=== PATIENT | female | born 1970 | race Caucasian/White ===

== ENCOUNTER 2018-09-03 11:01 | Outpatient (CLI) | payer OTHER ==
--- NOTE | 2018-09-03 12:45 | ULT ---
PELVIC ULTRASOUND COMPLETE INCLUDING TRANSABDOMINAL, TRANSVAGINAL AND VASCULAR DUPLEX WITH COLOR AND SPECTRAL DOPPLER IMAGING: History: Pelvic pain. FINDINGS: The uterus measures 7.5 x 3.8 x 4.0 cm with a 0.6 cm endometrium. The right ovary measures 14.7 x 8.9 x 10.7 cm which is markedly enlarged, there is a slightly septated right ovarian cyst or cystic mass which measures 7.5 x 9.8 x 11.9 cm. The left ovary is not seen. There is a 1.4 x 1.5 x 1.7 cm fibroi d within the body of the uterus. There is some focal thickening of the endometrial region of the cerv ix measuring up to approximately 0.7 cm in thickness, nonspecific. IMPRESSION: Large right ovarian cyst/cystic mass. Follow up gynecological evaluation is suggested. Small uterine fibroid. Nonspecific focal thickening of the endometrium region of the cervix. No evidence for ovaria n torsion although color flow evaluation within the ovary is somewhat limited because of the very lar ge ovarian cyst which replaces most of the right ovary with very little adjacent normal right ovarian tissue. Follow up gynecological evaluation is suggested. POS: RRE
--- NOTE | 2018-09-03 14:59 | MMO ---
FILMS COMPARED: The present examination has been compared to prior imaging studies performed at [facility] on 11/28/2011, 12/10/2014, 04/13/2016 and 05/08/2017. MAMMOGRAM FINDINGS: There are scattered fibroglandular densities. There are no suspicious masses, calcifications or areas of architectural distortion. IMPRESSION: THERE IS NO MAMMOGRAPHIC EVIDENCE OF MALIGNANCY. A ROUTINE FOLLOW-UP MAMMOGRAM IN 1 YEAR IS RECOMMENDED. ACR BI-RADS Category 1 - Negative
== END 2018-09-03 11:02 | disposition home or self-care (01) ==
LOC: BICULT 11:01
PROVIDERS: ATTEND Internal Medicine
DX: Z12.31 Encounter for screening mammogram for malignant neoplasm of breast (principal); R10.2 Pelvic and perineal pain; D25.9 Leiomyoma of uterus, unspecified; R93.89 Abnormal findings on diagnostic imaging of other specified body structures; N83.201 Unspecified ovarian cyst, right side
CPT/HCPCS: 76856; 77063; 77067

== ENCOUNTER 2019-09-05 10:00 | Outpatient (CLI) | payer OTHER ==
--- NOTE | 2019-09-05 10:36 | MMO ---
Bilateral MAMMO Bilat Screen [facility]DI. CLINICAL HISTORY: Patient is 49 years old and is seen for screening. The patient has the following family history of breast cancer: maternal grandfather, at age 50, malignant (generic). The patient has no personal history of cancer. The patient has a history of right Ultrasound Guided Core Biopsy in 2010 - benign. VIEWS: The views performed were: bilateral craniocaudal with tomosynthesis; bilateral mediolateral oblique with tomosynthesis; and cleavage view with tomosynthesis. FILMS COMPARED: The present examination has been compared to prior imaging studies performed at [facility] on 12/10/2014, 04/13/2016, 05/08/2017 and 09/03/2018. This study has been interpreted with the assistance of computer-aided detection. MAMMOGRAM FINDINGS: There are scattered fibroglandular densities. There are stable benign appearing densities seen in both breasts. There are no suspicious masses, suspicious calcifications, or new areas of architectural distortion. IMPRESSION: THERE IS NO MAMMOGRAPHIC EVIDENCE OF MALIGNANCY. A ROUTINE FOLLOW-UP MAMMOGRAM IN 1 YEAR IS RECOMMENDED. ACR BI-RADS Category 2 - Benign finding MAMMOGRAPHY NOTE: 1. A negative mammogram report should not delay a biopsy if a dominant of clinically suspicious mass is present. 2. Approximately 10% to 15% of breast cancers are not detected by mammography. 3. Adenosis and dense breasts may obscure an underlying neoplasm. Reported by: BETZAIDA RODRIGUEZ MD Electonically Signed: [id number]
== END 2019-09-05 10:01 | disposition home or self-care (01) ==
LOC: BICMAMMO 10:00
PROVIDERS: ATTEND Internal Medicine
DX: Z12.31 Encounter for screening mammogram for malignant neoplasm of breast (principal); Z80.3 Family history of malignant neoplasm of breast; Z91.89 Other specified personal risk factors, not elsewhere classified
CPT/HCPCS: 77067

== ENCOUNTER 2020-09-06 10:20 | Outpatient (CLI) | payer OTHER | END 2020-09-06 10:21 | disposition home or self-care (01) | LOC: BICMAMMO 10:20 | PROVIDERS: ATTEND Internal Medicine | DX: Z12.31 Encounter for screening mammogram for malignant neoplasm of breast (principal); Z91.89 Other specified personal risk factors, not elsewhere classified | CPT/HCPCS: 77063; 77067 ==

== ENCOUNTER 2020-10-04 10:59 | Inpatient (IN) | payer OTHER ==
[2020-10-04 11:43] LABS: #Basophils 0.1 thou/uL (0.0-0.2); #Eosinphils 0.2 thou/uL (0.0-0.7); #Lymphocytes 3.7 thou/uL (1.20-3.40); #Monocytes 0.6 thou/uL (0.11-0.59); #Neutrophils 8.1 thou/uL (1.40-6.50); %Basophils 0.6 % (0.0-1.0); %Eosinophils 1.4 % (0.0-10.0); %Lymphocytes 29.1 % (21.0-51.0); %Monocytes 4.7 % (0.0-10.0); %Neutrophils 64.1 % (42.0-75.0); Hemoglobin 7.5 g/dL (12.0-16.0); Mean Corpuscular HGB CONC 33.9 g/dL (32.0-36.0); Mean Corpuscular Hemoglobin 29.2 pg (27.0-31.0); Mean Corpuscular Volume 86.1 fL (78.0-98.0); Mean Platelet Volume 8.4 fL (7.4-10.4); Platelet Count 269 thou/uL (130-400); Red Blood Cell (RBC) Count 2.58 mill/uL (4.20-5.40); White Blood Cell (WBC) Count 12.7 thou/uL (4.8-10.8)
[2020-10-04 11:50] LABS: Bilirubin Negative (Negative); Blood, Urine Negative (Negative); Clarity Clear (Clear); Glucose, Urine (Dipstick) Normal (Negative); Ketone, Urine Negative (Negative); Leukocyte Negative Leu/uL (Negative); Nitrite Negative (Negative); Protein, Urine (Dipstick) Negative (Neg-Trace); Specific Gravity, Urine 1.004 (1.002-1.036); Urobilinogen Normal mg/dL (Less than 2); pH, Urine 6.5 (5.0-9.0)
[2020-10-04 12:10] LABS: ALT (SGPT) 26 U/L (8-55); AST (SGOT) 18 U/L (5-34); Albumin 3.8 g/dL (3.5-5.0); Alkaline Phosphatase 69 U/L (40-110); Anion Gap 12 mmol/L (10-20); BUN (Urea Nitrogen) 18 mg/dL (9.8-20.1); Bilirubin, Total 0.2 mg/dL (0.2-1.2); Calc. Creatinine Clearance 0 mL/min (70-130); Calcium 8.6 mg/dL (7.8-10.44); Carbon Dioxide 24 mmol/L (22-29); Chloride 110 mmol/L (98-107); Globulin 2.6 g/dL (2.4-3.5); Glucose 122 mg/dL (70-105); Potassium 3.9 mmol/L (3.5-5.1); Protein, Total 6.4 g/dL (6.0-8.3); Sodium 142 mmol/L (136-145)
[2020-10-04 13:30] LABS: SARS-CoV-2 NAA Rapid Test Not Detected (NotDetected)
[2020-10-04] MEDS ORDERED: Pantoprazole 40 MG VIAL ONE (15:01)
[2020-10-04] MEDS ORDERED: Acetaminophen 325 MG TAB PO PRN (15:31)
[2020-10-04] MEDS ORDERED: Ondansetron PF 4 MG/2 ML Vial IVP PRN (15:31)
[2020-10-04] MEDS ORDERED: Pantoprazole 80 MG in Sodium Chloride 0.9% 100 ML IVPB SCH (15:45)
[2020-10-04 16:54] VITALS: BMI 40.1
[2020-10-04 18:01] LABS: Reticulocyte Count 2.9 % (0.5-1.5)
[2020-10-04 18:23] LABS: Iron 97 ug/dL (50-170); Iron Binding Capacity, Total 368 mcg/dL (265-497)
[2020-10-04] MEDS ORDERED: GoLYTELY 4,000 ml Bottle PO SCH (18:45)
[2020-10-04] MEDS ORDERED: traMADol HCl 50 MG TAB PO SCH (21:30)
[2020-10-05 06:05] LABS: #Eosinphils 0.2 thou/uL (0.0-0.7); #Lymphocytes 3.1 thou/uL (1.20-3.40); #Monocytes 0.4 thou/uL (0.11-0.59); #Neutrophils 4.7 thou/uL (1.40-6.50); %Basophils 0.2 % (0.0-1.0); %Eosinophils 2.2 % (0.0-10.0); %Lymphocytes 37.6 % (21.0-51.0); %Monocytes 4.5 % (0.0-10.0); %Neutrophils 55.6 % (42.0-75.0); Hemoglobin 8.1 g/dL (12.0-16.0); Mean Corpuscular HGB CONC 34.7 g/dL (32.0-36.0); Mean Corpuscular Volume 83.6 fL (78.0-98.0); Mean Platelet Volume 8.7 fL (7.4-10.4); Platelet Count 181 thou/uL (130-400); RBC Distribution Width 15.6 % (11.5-14.5); White Blood Cell (WBC) Count 8.4 thou/uL (4.8-10.8)
[2020-10-05 06:11] LABS: Prothrombin Time 12.9 sec (12.0-14.7)
[2020-10-05 06:30] LABS: ALT (SGPT) 22 U/L (8-55); AST (SGOT) 15 U/L (5-34); Albumin 3.4 g/dL (3.5-5.0); Alkaline Phosphatase 61 U/L (40-110); Anion Gap 11 mmol/L (10-20); BUN (Urea Nitrogen) 9 mg/dL (9.8-20.1); Bilirubin, Total 0.3 mg/dL (0.2-1.2); Calc. Creatinine Clearance 165 mL/min (70-130); Calcium 8.2 mg/dL (7.8-10.44); Carbon Dioxide 25 mmol/L (22-29); Chloride 110 mmol/L (98-107); Globulin 2.3 g/dL (2.4-3.5); Glucose 100 mg/dL (70-105); Potassium 3.8 mmol/L (3.5-5.1); Protein, Total 5.7 g/dL (6.0-8.3); Sodium 142 mmol/L (136-145)
[2020-10-05] MEDS ORDERED: PROPOFOL 200 MG/20 ML VIAL ONE (12:53)
[2020-10-05] MEDS ORDERED: Lidocaine 1% PF 5 ML VIAL ONE (12:53)
[2020-10-05] MEDS ORDERED: Pantoprazole 40 MG VIAL IVP SCH (14:00)
[2020-10-05] MEDS: traMADol HCl 50 MG TAB PO PRN ×2 (15:15→20:02)
[2020-10-05] MEDS: Pantoprazole 40 MG VIAL IVP SCH (20:03)
[2020-10-06 05:58] LABS: Platelet Count 204 thou/uL (130-400)
[2020-10-06 07:29] VITALS: BP 122/83; TEMP 98.3
[2020-10-06] MEDS: Pantoprazole 40 MG VIAL IVP SCH (08:08)
[2020-10-06] MEDS: traMADol HCl 50 MG TAB PO PRN (11:15)
== END 2020-10-06 12:42 | disposition home or self-care (01) | DRG 378 ==
LOC: ERS 10:59 → T4-A 15:31
PROVIDERS: ADMIT Internal Medicine; ATTEND Family Medicine
PROC: 30233N1 Transfusion of Nonautologous Red Blood Cells into Peripheral Vein, Percutaneous Approach (ICD-10-PCS; 2020-10-04)
PROC: 0DB78ZX Excision of Stomach, Pylorus, Via Natural or Artificial Opening Endoscopic, Diagnostic (ICD-10-PCS; principal; 2020-10-05)
DX: K25.4 Chronic or unspecified gastric ulcer with hemorrhage (principal); D62 Acute posthemorrhagic anemia; Z20.822 Contact with and (suspected) exposure to COVID-19; I48.20 Chronic atrial fibrillation, unspecified; I10 Essential (primary) hypertension; E66.9 Obesity, unspecified; Z79.899 Other long term (current) drug therapy; Z68.41 Body mass index [BMI] 40.0-44.9, adult; Z79.01 Long term (current) use of anticoagulants
CPT/HCPCS: 0240U; 36415; 36430; 71045; 80053; 81003; 82274; 82728; 83540; 83550; 84484; 85014; 85018; 85025; 85046; 85049; 85610; 86850; 86900; 86901; 88305; 93005; 93010; 96374; C9113; J2704; J3490; P9016

== ENCOUNTER 2021-10-27 15:31 | Outpatient (CLI) | payer OTHER | END 2021-10-27 15:32 | disposition home or self-care (01) | LOC: BICRAD 15:31 | PROVIDERS: ATTEND Internal Medicine | DX: M25.562 Pain in left knee (principal) ==

== ENCOUNTER 2021-11-03 12:16 | Outpatient (CLI) | payer OTHER | END 2021-11-03 12:17 | disposition home or self-care (01) | LOC: TBSIIMAG 12:16 | PROVIDERS: ATTEND Internal Medicine | DX: M25.562 Pain in left knee (principal); S83.242A Other tear of medial meniscus, current injury, left knee, initial encounter; M25.862 Other specified joint disorders, left knee ==

== ENCOUNTER 2021-12-05 14:23 | Outpatient (CLI) | payer OTHER ==
[2021-12-05 15:43] LABS: #Basophils 0.1 10x3/uL (0.0-0.2); #Eosinphils 0.2 10x3/uL (0.0-0.5); #Monocytes 0.5 10x3/uL (0.0-1.1); #Neutrophils 7.1 10x3/uL (1.5-8.4); %Basophils 0.6 % (0.0-2.0); %Eosinophils 2.1 % (0.0-6.0); %Lymphocytes 23.5 % (18.0-47.0); %Monocytes 4.5 % (0.0-10.0); %Neutrophils 68.9 % (40.0-75.0); Hemoglobin 12.9 g/dL (12.0-15.5); Mean Corpuscular HGB CONC 33.1 g/dL (32.0-36.0); Mean Corpuscular Hemoglobin 29.1 pg (27.0-33.0); Mean Corpuscular Volume 87.8 fl (81.6-98.3); Mean Platelet Volume 10.9 fl (7.4-10.4); Platelet Count 352 10x3/uL (150-450); RBC Distribution Width 12.3 % (11.5-14.5); Red Blood Cell (RBC) Count 4.44 10x6/uL (3.90-5.03); White Blood Cell (WBC) Count 10.3 10x3/uL (3.5-10.5)
[2021-12-05 16:15] LABS: Anion Gap 16 mmol/L (10-20); BUN (Urea Nitrogen) 11 mg/dL (9.8-20.1); Calc. Creatinine Clearance 0 mL/min (70-130); Calcium 9.7 mg/dL (7.8-10.44); Carbon Dioxide 24 mmol/L (22-29); Chloride 104 mmol/L (98-107); Glucose 120 mg/dL (70-105); Potassium 4.7 mmol/L (3.5-5.1); Sodium 139 mmol/L (136-145)
== END 2021-12-05 14:24 | disposition home or self-care (01) ==
LOC: LABBT 14:23
PROVIDERS: ATTEND Orthopaedic Surgery
DX: Z01.818 Encounter for other preprocedural examination (principal); S83.242A Other tear of medial meniscus, current injury, left knee, initial encounter; Z20.822 Contact with and (suspected) exposure to COVID-19
CPT/HCPCS: 80048; 85025; 93005; 93010; U0003; U0005

== ENCOUNTER 2021-12-08 07:30 | Day surgery (SDC) | payer OTHER ==
[2021-12-06 16:05] VITALS: BMI 41.8
[2021-12-08] MEDS ORDERED: PROPOFOL 20 ML ONE (07:54)
[2021-12-08] MEDS ORDERED: CEFAZOLIN 2 GM VIAL ONE (09:05)
[2021-12-08] MEDS ORDERED: Sodium Chloride 0.9% 100 ML ONE (09:05)
[2021-12-08] MEDS ORDERED: fentaNYL Citrate/PF 100 MCG/2 ML SYRINGE ONE (09:18)
[2021-12-08] MEDS ORDERED: Bupivacaine PF 0.5% 30 ML VIAL ONE (09:18)
[2021-12-08] MEDS ORDERED: PROPOFOL 200 MG/20 ML VIAL ONE (09:18)
[2021-12-08] MEDS ORDERED: Lidocaine 1% PF 5 ML VIAL ONE (09:18)
[2021-12-08] MEDS ORDERED: Ondansetron PF 4 MG/2 ML Vial ONE (09:18)
[2021-12-08] MEDS ORDERED: Dexamethasone 20 MG/5 ML VIAL ONE (09:18)
[2021-12-08] MEDS ORDERED: Ketorolac Tromethamine 30 MG/ML VIAL ONE (09:18)
[2021-12-08] MEDS ORDERED: Lidocaine 2% w/Epinephrine 1:200K 20 ML VIAL ONE (09:18)
[2021-12-08] MEDS ORDERED: Lidocaine 1% (PF) 30 ML VIAL ONE (09:38)
[2021-12-08] MEDS ORDERED: HYDROcodone/Acetaminophen 5/325 mg Tablet ONE (11:22)
== END 2021-12-08 12:50 | disposition home or self-care (01) ==
LOC: SDC 07:30
PROVIDERS: ATTEND Orthopaedic Surgery
PROC: 0SBD4ZZ Excision of Left Knee Joint, Percutaneous Endoscopic Approach (ICD-10-PCS; principal; 2021-12-08)
DX: S83.232A Complex tear of medial meniscus, current injury, left knee, initial encounter (principal); M23.007 Cystic meniscus, unspecified meniscus, left knee; M22.42 Chondromalacia patellae, left knee; M65.88 Other synovitis and tenosynovitis, other site; I48.91 Unspecified atrial fibrillation; Z79.899 Other long term (current) drug therapy; W19.XXXA Unspecified fall, initial encounter
CPT/HCPCS: J1100; J1885; J2001; J2405; J2704; J3490; S0020

== ENCOUNTER 2022-03-08 16:38 | Outpatient (CLI) | payer OTHER | END 2022-03-08 16:39 | disposition home or self-care (01) | LOC: BICRAD 16:38 | PROVIDERS: ATTEND Internal Medicine | DX: M79.672 Pain in left foot (principal); M19.071 Primary osteoarthritis, right ankle and foot ==